=== PATIENT | female | born 1970 | race Caucasian/White ===

== ENCOUNTER 2016-10-07 12:28 | Emergency (ER) | payer OTHER ==
[2016-10-07 13:05] LABS: #Basophils 0.2 thou/uL (0.0-0.2); #Eosinphils 0.3 thou/uL (0.0-0.7); #Monocytes 1.1 thou/uL (0.11-0.59); #Neutrophils 6.5 thou/uL (1.40-6.50); %Basophils 2.1 % (0.0-1.0); %Eosinophils 2.7 % (0.0-10.0); %Lymphocytes 27.3 % (21.0-51.0); %Monocytes 9.7 % (0.0-10.0); Mean Platelet Volume 8.2 fL (7.4-10.4); Red Blood Cell (RBC) Count 4.98 mill/uL (4.20-5.40); White Blood Cell (WBC) Count 11.1 thou/uL (4.8-10.8)
[2016-10-07 13:18] LABS: ALT (SGPT) 32 U/L (0-55); AST (SGOT) 19 U/L (5-34); Alkaline Phosphatase 108 U/L (40-150); Anion Gap 15 mmol/L (10-20); BUN (Urea Nitrogen) 20 mg/dL (7.0-18.7); Bilirubin, Total 0.3 mg/dL (0.2-1.2); CK (CPK) 20 U/L (29-168); Calc. Creatinine Clearance 0 mL/min (70-130); Calcium 8.8 mg/dL (7.8-10.44); Carbon Dioxide 26 mmol/L (22-29); Chloride 102 mmol/L (98-107); Estimated GFR-MDRD 76; Globulin 2.9 g/dL (2.4-3.5); Protein, Total 6.8 g/dL (6.0-8.3)
[2016-10-07 13:21] LABS: Troponin I Less than 0.010 ng/mL (< 0.028)
[2016-10-07] MEDS ORDERED: Ketorolac Tromethamine 60 MG/2 ML VIAL ONE (13:32)
--- NOTE | 2016-10-07 13:36 | ERRECORD ---
[facility] EMERGENCY RECORD HPI CHEST PAIN CHIEF COMPLAINT: Patient presents for evaluation of chest pain, ongoing, Patient presents for evaluation of Pt with CP starting last pm. COnstant but worsening. Hurts along left lower sternal border. Worse with deep breaths. No other symptoms. No trauma. (13:02 JLOY) HISTORIAN: History provided by patient. (13:02 JLOY) LOCATION: Symptoms are localized, most severe in the left lower chest. (13:02 JLOY) QUALITY: Pain is dull in nature. (13:02 JLOY) TIME COURSE: Gradual onset of symptoms, Symptoms are worsening, are constant. (13:02 JLOY) ASSOCIATED WITH: No associated chills, No associated cough, No associated diaphoresis, No associated fever, No associated nausea, No associated palpitations, No associated shortness of breath, No associated trauma, No associated upper respiratory infection, No associated vomiting. (13:02 JLOY) EXACERBATED BY: Patient's condition exacerbated by deep breaths. (13:02 JLOY) RELIEVED BY: Patient's condition relieved by nothing. (13:02 JLOY) RISK FACTORS: No coronary artery disease risk factors. (13:04 JLOY) ROS (13:04 JLOY) CONSTITUTIONAL: Historian denies chills, denies fever. ENT: Historian denies rhinorrhea, denies sore throat. CARDIOVASCULAR: Historian reports chest pain, denies diaphoresis, denies palpitations. RESPIRATORY: Historian denies cough, denies shortness of breath. GI: Historian denies abdominal pain, denies diarrhea, denies nausea, denies vomiting. GENITOURINARY FEMALE: Historian denies dysuria, denies frequency, denies hematuria. MUSCULOSKELETAL: Historian denies back pain. NEUROLOGIC: Historian denies dizziness, denies headache. PAST MEDICAL HISTORY MEDICAL HISTORY: Flu vaccine not up to date, No past medical history, Flu vaccine not up to date, Tetanus not up to date, Pneumococcal vaccine not up to date. (12:34 IHAC) FEMALE SURGICAL HISTORY: Surgical history of section, hysterectomy, x1, ear surgery. (12:34 IHAC) PSYCHIATRIC HISTORY: No previous psychiatric history. (12:34 IHAC) SOCIAL HISTORY: Patient denies alcohol use, Patient has no smoking history, Patient denies alcohol use, Patient denies drug use, Patient is a former tobacco user, smoked cigarettes, Patient quit smoking less than 10 years ago. (12:34 IHAC) NOTES: Nursing records reviewed, Agree with nursing records. &a-1R&a+25V*p+0X*[id number]*c152B*c15G*c2P*p-0X&a-25V&a+1RName: Lelia Kilpatrick : F45 MedRec: [id number] AcctNum: [id number] Prepared: WedOct 07, 2016 13:50 by Interface Page 1 of 3 pMD [facility] EMERGENCY RECORD (13:05 JL) KNOWN ALLERGIES No Known Allergies (Unconfirmed) No Known Drug Allergies CURRENT MEDICATIONS No recorded medications VITAL SIGNS VITAL SIGNS: Pain: 10, Time: 10/07/2016 12:29. (12:29 IHAC) BP: 138/88, Pulse: 94, Resp: 20, Pain: 10 (Constant), O2 sat: 98 on Room Air, Time: 10/07/2016 12:30. (12:30 IHAC) Temp: 97.9 (Oral), Time: 10/07/2016 12:36. (12:36 IHAC) BP: 132/78, Pulse: 82, Resp: 18, Pain: 10, Time: 10/07/2016 13:00. (13:00 BDON) PHYSICAL EXAM (13:04 JL) CONSTITUTIONAL: Vital Signs Reviewed, Patient appears non toxic, Patient alert and oriented to person, place and time. EYES: Eye exam included findings of eyelids normal to inspection, Pupils equally round and reactive to light, Conjunctiva normal. ENT: Pharynx exam normal, Uvula exam normal, Tonsil exam normal, Mouth exam normal, mucous membranes moist. NECK: Neck exam included findings of normal range of motion, Trachea midline. RESPIRATORY CHEST: Respiratory exam included findings of no respiratory distress, Breath sounds clear, No wheezing, No rales, No rhonchi, Chest exam included findings of chest movement symmetrical, Tenderness, moderate, to the left anterior chest, Palpation of chest reproduces symptoms, TTP along left sternal border. CARDIOVASCULAR: Heart rate regular rate and rhythm, Heart sounds normal. ABDOMEN FEMALE: Abdominal exam included findings of abdomen nontender, Bowel sounds normal. BACK: Back exam included findings of normal inspection, range of motion normal. UPPER EXTREMITY: Upper extremity exam included findings of inspection normal, Radial pulse normal, no cyanosis, no clubbing, no edema. LOWER EXTREMITY: Lower extremity exam included findings of inspection normal, no edema, no calf tenderness. NEURO: [place] coma scale 15, Neuro exam findings include patient oriented to person, place and time, Speech normal. SKIN: Skin exam included findings of skin warm, dry, and normal in color, no rash. PSYCHIATRIC: Normal affect. MEDICATION ADMINISTRATION SUMMARY &a-1R&a+25V*p+0X*e6096Z*c152B*c15G*c2P*p-0X&a-25V&a+1RName: Lelia Kilpatrick : F45 MedRec: [id number] AcctNum: [id number] Prepared: WedOct 07, 2016 13:50 by Interface Page 2 of 3 pMD [facility] EMERGENCY RECORD Drug Name: ketorolac intramuscular, Dose Ordered: 60 mg, Route: Intramuscular, Status: Given, Time: 13:38 10/07/2016, Detailed record available in Medication Service section. PROBLEM LIST No recorded problems DIAGNOSIS (13:27 LAZARO) FINAL: PRIMARY: Chest Pain, unspecified. PRESCRIPTION (13:26 JLOY) ibuprofen: TABLET : 800 mg : ORAL : Quantity: 1 Unit: tab(s) Route: ORAL Schedule: every 8 hours PRN Dispense: 30 May substitute. Refills: No Refills . NOTES: No Refills. DISPOSITION PATIENT: Disposition Type: Discharge, Disposition: *Discharge Home. (13:27 JLOY) Patient left the department. (13:44 BDON) Witt: BRADEN=MARIA DOLORES Crane, Toya LAZCANO=Ester Abarca=MD Mike, Fletcher &a-1R&a+25V*p+0X*[id number]*c152B*c15G*c2P*p-0X&a-25V&a+1RName: Lelia Kilpatrick : F45 MedRec: [id number] AcctNum: [id number] Prepared: WedOct 07, 2016 13:50 by Interface Page 3 of 3 pMD MTDD
--- NOTE | 2016-10-07 13:40 | PICIS ---
[facility] EMERGENCY RECORD TRIAGE (WedOct 07, 2016 12:30 IHAC) PATIENT: NAME: Lelia Kilpatrick, AGE: 45, GENDER: female, : Sun 1970, TIME OF GREET: WedOct 07, 2016 12:28, PREFERRED LANGUAGE: [place]serratian, ETHNICITY: Not or , ECODE BILLING MAP: [facility], SSN: [id number], Zip Code: [address], KG WEIGHT: 70.31, PHONE: , , , PERSON ID: [id number], PCP: MD Bernstein Katherine. (WedOct 07, 2016 12:30 IHAC) COMPLAINT: HIGH RISK COMPLAINT: CHEST PAIN. (WedOct 07, 2016 12:30 IHAC) ADMISSION: URGENCY: 3 Urgent, ADMISSION SOURCE: Home, TRANSPORT: CAR, BED: TRIAGE. (WedOct 07, 2016 12:30 IHAC) ASSESSMENT: Symptoms began yesterday. (12:34 IHAC) PAIN: Location CHEST TO LEFT AREA, Pain is intermittent, Aggravating factors:. (12:34 IHAC) SIRS SCORING: Heart Rate 55-109 (0), Temp range 96.8-101.1 (0), respiratory rate 12-24 (0). (12:34 IHAC) LMP: Last menstrual period: 2012. (12:34 IHAC) PROVIDERS: TRIAGE NURSE: Ester Abarca. (WedOct 07, 2016 12:30 IHAC) VITAL SIGNS: Pain 10, Time 10/07/2016 12:29. (12:29 IHAC) BP 138/88, Pulse 94, Resp 20, Pain 10, (Constant), O2 Sat 98, on Room Air, Time 10/07/2016 12:30. (12:30 IHAC) PREVIOUS VISIT ALLERGIES: No Known Drug Allergies. (WedOct 07, 2016 12:30 IHAC) No Known Drug Allergies. (12:34 IHAC) KNOWN ALLERGIES No Known Allergies (Unconfirmed) No Known Drug Allergies CURRENT MEDICATIONS No recorded medications VITAL SIGNS VITAL SIGNS: Pain: 10, Time: 10/07/2016 12:29. (12:29 IHAC) BP: 138/88, Pulse: 94, Resp: 20, Pain: 10 (Constant), O2 sat: 98 on Room Air, Time: 10/07/2016 12:30. (12:30 IHAC) Temp: 97.9 (Oral), Time: 10/07/2016 12:36. (12:36 IHAC) BP: 132/78, Pulse: 82, Resp: 18, Pain: 10, Time: 10/07/2016 13:00. (13:00 BDON) NURSING ASSESSMENT: CARDIOVASCULAR (12:45 BDON) CONSTITUTIONAL: Patient arrives, via hospital wheelchair, History obtained from patient, Patient appears, in distress due to pain, Patient cooperative, Patient alert, Oriented to person, place and time, Skin warm, Skin dry, Skin normal in color. PAIN: midsternal, to the left chest. CARDIOVASCULAR: Cardiovascular assessment findings include heart rate, tachycardic, Heart rhythm normal sinus, Notes: hold pressure on sternum and left chest, stating it feels &a-1R&a+25V*p+0X*r2095S*c152B*c15G*c2P*p-0X&a-25V&a+1RName: Lelia Kilpatrick : F45 MedRec: [id number] AcctNum: [id number] Prepared: WedOct 07, 2016 13:56 by Interface Page 1 of 6 pMD [facility] EMERGENCY RECORD better. SAFETY: Cart/Stretcher in lowest position, Family at bedside, Hospital ID band on, Patient in view of the nursing station. NURSING ASSESSMENT: RESPIRATORY /CHEST (13:08 IHAC) CONSTITUTIONAL: Complex assessment performed, Patient arrives ambulatory, Gait steady, History obtained from patient, Patient appears, anxious, Patient cooperative, Patient alert, Oriented to person, place and time, Skin warm, Skin dry, Skin normal in color, Mucous membranes pink, Mucous membranes moist, Patient is well-groomed, Patient complains of pain to chest radiating to left side. PAIN: aching pain, to the left chest, Onset of pain yesterday, on a scale 0-10 patient rates pain as 10, pain reported at a 10 at rest, Pain exacerbated by nothing. NURSING PROCEDURE: SNACK BAR ATTENDANT (12:41 BDON) PATIENT IDENTIFIER: Patient actively involved in identification process. SNACK BAR ATTENDANT: Cardiac monitoring indicated for complaint of chest pain, Patient placed on media monitor, Patient placed on non-invasive blood pressure monitor, Patient placed on continuous pulse oximetry. NURSING PROCEDURE: DISCHARGE NOTE (13:40 BDON) DISCHARGE: Patient discharged to home, Summary of Care printed/ provided, Patient requested and was provided an electronic copy of Discharge Instructions, Transition record given to patient, Discharge instructions given to patient, Simple or moderate discharge teaching performed, Prescriptions given and instructions on side effects given, Medication reconciliation form given, Above person(s) verbalized understanding of discharge instructions and follow-up care, Patient treated and evaluated by physician. NURSING PROCEDURE: EKG CHART (12:36 BDON) PATIENT IDENTIFIER: Patient actively involved in identification process. EKG: EKG indicated for complaint of chest pain, 12 lead EKG performed on the left chest. NURSING PROCEDURE: NURSE NOTES (13:24 BDON) NURSES NOTES: Patient assisted to bathroom with steady gait. ORDER DETAILS Order Name: SNACK BAR ATTENDANT ED, Status: Done, Time: 12:40 10/07/2016, User: BRADEN, - Ordered for: MD Mckeon Joshua, - Entered by: MARIA DOLORES Crane Bettye - WedOct 07, 2016 12:40, - Quantity: 1, &a-1R&a+25V*p+0X*q1406R*c152B*c15G*c2P*p-0X&a-25V&a+1RName: Lelia Kilpatrick : F45 MedRec: [id number] AcctNum: [id number] Prepared: WedOct 07, 2016 13:56 by Interface Page 2 of 6 D [facility] EMERGENCY RECORD Order Name: Cardiac Profile w/CKMB & Troponin - I, Status: Active, Time: 12:45 10/07/2016, User: LAZARO, - Ordered for: MD Mckeon Joshua, - Entered by: MD Mckeon Joshua - WedOct 07, 2016 12:45, - Quantity: 1, Order Name: CBC with Differential, Status: Active, Time: 12:45 10/07/2016, User: LAZARO, - Ordered for: MD Mckeon Joshua, - Entered by: MD Mckeon Joshua - WedOct 07, 2016 12:45, - Quantity: 1, Order Name: CK (CPK), Status: Active, Time: 12:45 10/07/2016, User: LAZARO, - Ordered for: MD Mckeon Joshua, - Entered by: MD Mckeon Joshua - WedOct 07, 2016 12:45, - Quantity: 1, Order Name: Comprehensive Metabolic Panel, Status: Active, Time: 12:45 10/07/2016, User: LAZARO, - Ordered for: MD Mckeon Joshua, - Entered by: MD Mckeon Joshua - WedOct 07, 2016 12:45, - Quantity: 1, Order Name: EKG 12 Lead in Emergency Room, Status: Active, Time: 12:39 10/07/2016, User: BRADEN, - Ordered for: MD Mckeon Joshua, - Entered by: MARIA DOLORES Crane Bettye - WedOct 07, 2016 12:39, - Quantity: 1. MEDICATION ADMINISTRATION SUMMARY Drug Name: ketorolac intramuscular, Dose Ordered: 60 mg, Route: Intramuscular, Status: Given, Time: 13:38 10/07/2016, Detailed record available in Medication Service section. MEDICATION SERVICE (13:38 LAZARO) ketorolac intramuscular: Order: ketorolac intramuscular (ketorolac tromethamine) - Dose: 60 mg : Intramuscular Ordered by: Fletcher Mckeon MD Entered by: Fletcher Mckeon MD WedOct 07, 2016 13:26 Documented as given by: Toya Crane RN WedOct 07, 2016 13:38 Patient, Medication, Dose, Route and Time verified prior to administration. IM medication, Amount given: 60 mg, Medication administered to right thigh, Correct patient, time, route, dose and medication confirmed prior to administration, Patient advised of actions and side-effects prior to administration, Allergies confirmed and medications reviewed prior to administration. HPI CHEST PAIN CHIEF COMPLAINT: Patient presents for evaluation of chest pain, ongoing, Patient presents for evaluation of Pt with CP starting last pm. COnstant but worsening. Hurts along left lower sternal border. Worse with deep breaths. No other &a-1R&a+25V*p+0X*z9926S*c152B*c15G*c2P*p-0X&a-25V&a+1RName: Lelia Kilpatrick : F45 MedRec: [id number] AcctNum: [id number] Prepared: WedOct 07, 2016 13:56 by Interface Page 3 of 6 pMD [facility] EMERGENCY RECORD symptoms. No trauma. (13:02 JLOY) HISTORIAN: History provided by patient. (13:02 JLOY) LOCATION: Symptoms are localized, most severe in the left lower chest. (13:02 JLOY) QUALITY: Pain is dull in nature. (13:02 JLOY) TIME COURSE: Gradual onset of symptoms, Symptoms are worsening, are constant. (13:02 JLOY) ASSOCIATED WITH: No associated chills, No associated cough, No associated diaphoresis, No associated fever, No associated nausea, No associated palpitations, No associated shortness of breath, No associated trauma, No associated upper respiratory infection, No associated vomiting. (13:02 JLOY) EXACERBATED BY: Patient's condition exacerbated by deep breaths. (13:02 JLOY) RELIEVED BY: Patient's condition relieved by nothing. (13:02 JLOY) RISK FACTORS: No coronary artery disease risk factors. (13:04 JLOY) ROS (13:04 JLOY) CONSTITUTIONAL: Historian denies chills, denies fever. ENT: Historian denies rhinorrhea, denies sore throat. CARDIOVASCULAR: Historian reports chest pain, denies diaphoresis, denies palpitations. RESPIRATORY: Historian denies cough, denies shortness of breath. GI: Historian denies abdominal pain, denies diarrhea, denies nausea, denies vomiting. GENITOURINARY FEMALE: Historian denies dysuria, denies frequency, denies hematuria. MUSCULOSKELETAL: Historian denies back pain. NEUROLOGIC: Historian denies dizziness, denies headache. PAST MEDICAL HISTORY MEDICAL HISTORY: Flu vaccine not up to date, No past medical history, Flu vaccine not up to date, Tetanus not up to date, Pneumococcal vaccine not up to date. (12:34 IHAC) FEMALE SURGICAL HISTORY: Surgical history of section, hysterectomy, x1, ear surgery. (12:34 IHAC) PSYCHIATRIC HISTORY: No previous psychiatric history. (12:34 IHAC) SOCIAL HISTORY: Patient denies alcohol use, Patient has no smoking history, Patient denies alcohol use, Patient denies drug use, Patient is a former tobacco user, smoked cigarettes, Patient quit smoking less than 10 years ago. (12:34 IHAC) NOTES: Nursing records reviewed, Agree with nursing records. (13:05 [facility]) PHYSICAL EXAM (13:04 [facility]) CONSTITUTIONAL: Vital Signs Reviewed, Patient appears non toxic, Patient alert and oriented to person, place and time. &a-1R&a+25V*p+0X*i0398T*c152B*c15G*c2P*p-0X&a-25V&a+1RName: Lelia Kilpatrick : F45 MedRec: [id number] AcctNum: [id number] Prepared: WedOct 07, 2016 13:56 by Interface Page 4 of 6 pMD [facility] EMERGENCY RECORD EYES: Eye exam included findings of eyelids normal to inspection, Pupils equally round and reactive to light, Conjunctiva normal. ENT: Pharynx exam normal, Uvula exam normal, Tonsil exam normal, Mouth exam normal, mucous membranes moist. NECK: Neck exam included findings of normal range of motion, Trachea midline. RESPIRATORY CHEST: Respiratory exam included findings of no respiratory distress, Breath sounds clear, No wheezing, No rales, No rhonchi, Chest exam included findings of chest movement symmetrical, Tenderness, moderate, to the left anterior chest, Palpation of chest reproduces symptoms, TTP along left sternal border. CARDIOVASCULAR: Heart rate regular rate and rhythm, Heart sounds normal. ABDOMEN FEMALE: Abdominal exam included findings of abdomen nontender, Bowel sounds normal. BACK: Back exam included findings of normal inspection, range of motion normal. UPPER EXTREMITY: Upper extremity exam included findings of inspection normal, Radial pulse normal, no cyanosis, no clubbing, no edema. LOWER EXTREMITY: Lower extremity exam included findings of inspection normal, no edema, no calf tenderness. NEURO: [place] coma scale 15, Neuro exam findings include patient oriented to person, place and time, Speech normal. SKIN: Skin exam included findings of skin warm, dry, and normal in color, no rash. PSYCHIATRIC: Normal affect. EVENTS TRANSFER: Triage to Emergency Triage. (WedOct 07, 2016 12:30 IHAC) Emergency Triage to Emergency Room -03. (12:38 BDON) Removed from Emergency Emergency Room -03. (13:44 BDON) PROBLEM LIST No recorded problems DIAGNOSIS (13:27 JLOY) FINAL: PRIMARY: Chest Pain, unspecified. DISPOSITION PATIENT: Disposition Type: Discharge, Disposition: *Discharge Home. (13:27 JLOY) Patient left the department. (13:44 BDON) INSTRUCTION (13:27 JLOY) DISCHARGE: CHEST PAIN COSTOCHONDRITIS. FOLLOWUP: MD Day, Sherwin Espinoza, [address], [address], [facility] [address], , Follow up with Primary Care Physician in 7-10 days. &a-1R&a+25V*p+0X*f7870B*c152B*c15G*c2P*p-0X&a-25V&a+1RName: Lelia Kilpatrick : 5 MedRec: [id number] AcctNum: [id number] Prepared: WedOct 07, 2016 13:56 by Interface Page 5 of 6 pMD [facility] EMERGENCY RECORD PRESCRIPTION (13:26 JLOY) ibuprofen: TABLET : 800 mg : ORAL : Quantity: 1 Unit: tab(s) Route: ORAL Schedule: every 8 hours PRN Dispense: 30 May substitute. Refills: No Refills . NOTES: No Refills. IMAGING *DISCHARGE INSTRUCTIONS RECEIPT: Image captured from scanner. (13:42 BDON) *EKG: Image captured from scanner. (13:42 BDON) SUPPLY: Image captured from scanner. (13:43 BDON) ADMIN DIGITAL SIGNATURE: MD Mckeon Joshua. (13:27 JLOY) MARIA DOLORES Crane Bettye. (13:44 BDON) Witt: BDKHARI=MARIA DOLORES Crane Bettye IHAC=Ester Abarca JLOY=MD Mckeon Joshua &a-1R&a+25V*p+0X*j2109X*c152B*c15G*c2P*p-0X&a-25V&a+1RName: Lelia Kilpatrick : 5 MedRec: [id number] AcctNum: [id number] Prepared: WedOct 07, 2016 13:56 by Interface Page 6 of 6 pMD MTDD
== END 2016-10-07 13:40 | disposition home or self-care (01) ==
LOC: NAV ERS 12:28
DX: R07.9 Chest pain, unspecified (principal); Z90.710 Acquired absence of both cervix and uterus; Z87.891 Personal history of nicotine dependence
CPT/HCPCS: 36415; 80053; 82550; 82553; 84484; 85025; 93005; 96372; J1885

== ENCOUNTER 2017-07-03 04:33 | Emergency (ER) | payer OTHER ==
[2017-07-03] MEDS ORDERED: Sodium Chloride 0.9% 1,000 ML ONE (05:00)
[2017-07-03] MEDS ORDERED: Ondansetron HCl/PF 4 MG/2 ML Vial ONE ×2 (05:00→06:35)
[2017-07-03 05:01] LABS: #Basophils 0.1 thou/uL (0.0-0.2); #Eosinphils 0.1 thou/uL (0.0-0.7); #Monocytes 0.6 thou/uL (0.11-0.59); #Neutrophils 7.4 thou/uL (1.40-6.50); %Basophils 1.1 % (0.0-1.0); %Eosinophils 0.9 % (0.0-10.0); %Lymphocytes 19.6 % (21.0-51.0); %Monocytes 6.2 % (0.0-10.0); %Neutrophils 72.2 % (42.0-75.0); Hemoglobin 14.6 g/dL (12.0-16.0); Mean Corpuscular HGB CONC 32.3 g/dL (32.0-36.0); Mean Corpuscular Hemoglobin 28.5 pg (27.0-31.0); Mean Corpuscular Volume 88.2 fl (81.0-99.0); Mean Platelet Volume 8.6 fL (7.4-10.4); Platelet Count 267 thou/uL (130-400); RBC Distribution Width 12.8 % (11.5-14.5); Red Blood Cell (RBC) Count 5.11 mill/uL (4.20-5.40); White Blood Cell (WBC) Count 10.2 thou/uL (4.8-10.8)
[2017-07-03 05:14] LABS: BHCG - Serum Negative (NEGATIVE); Pregs Control Bar Appear? YES (CONTROL BAR)
[2017-07-03 05:20] LABS: ALT (SGPT) 25 U/L (8-55); AST (SGOT) 18 U/L (5-34); Albumin 4.3 g/dL (3.5-5.0); Alkaline Phosphatase 93 U/L (40-150); Anion Gap 14 mmol/L (10-20); BUN (Urea Nitrogen) 15 mg/dL (7.0-18.7); Bilirubin, Total 0.2 mg/dL (0.2-1.2); Calc. Creatinine Clearance 0 mL/min (70-130); Calcium 9.5 mg/dL (7.8-10.44); Carbon Dioxide 24 mmol/L (22-29); Chloride 105 mmol/L (98-107); Estimated GFR-MDRD 82; Globulin 3.4 g/dL (2.4-3.5); Glucose 125 mg/dL (70-105); Lipase 14 U/L (8-78); Protein, Total 7.7 g/dL (6.0-8.3); Sodium 139 mmol/L (136-145)
[2017-07-03] MEDS ORDERED: Pantoprazole 40 MG VIAL ONE (06:34)
[2017-07-03] MEDS ORDERED: metroNIDAZOLE 500 MG/100 ML BAG ONE ×2 (06:35→06:36)
[2017-07-03 06:48] LABS: Bacteria/HPF None Seen HPF (None Seen); Bilirubin Negative (Negative); Blood, Urine Moderate (Negative); Clarity Clear (Clear); Glucose, Urine (Dipstick) Negative (Negative); Leukocyte Negative (Negative); Nitrite Negative (Negative); Protein, Urine (Dipstick) Negative (Neg-Trace); Urobilinogen 0.2 mg/dL (0.2-1.0); WBC/HPF None Seen HPF (0-3)
[2017-07-03] MEDS ORDERED: Iopamidol 370 76% 100 ML VIAL ONE (09:00)
--- NOTE | 2017-07-03 10:18 | CT ---
PRELIMINARY REPORT/[facility]/EMERGENCY AFTER HOURS PROCEDURE: EXAM: CT Abdomen and Pelvis With Intravenous Contrast CLINICAL HISTORY: 46 years old, female; Signs and symptoms; Vomiting; Prior surgery; Surgery date: 6+ months; Surgery type: Hysterectomy; Additional info: Diffuse abd pain since 2029 TECHNIQUE: Axial computed tomography images of the abdomen and pelvis with intravenous contrast. All CT scans a t this facility use one or more dose reduction techniques, viz.: automated exposure control; ma/kV a djustment per patient size (including targeted exams where dose is matched to indication; i.e. head) ; or iterative reconstruction technique. Coronal and sagittal reformatted images were created and reviewed. CONTRAST: 96 mL of isovue 370 administered intravenously. COMPARISON: No relevant prior studies available. FINDINGS: Lower thorax: Minimal bibasilar dependent atelectasis. ABDOMEN: Liver: Unremarkable. Gallbladder and bile ducts: Unremarkable Pancreas: Unremarkable. Spleen: Unremarkable. Adrenals: Unremarkable. Kidneys and ureters: Unremarkable. Stomach and bowel: Descending colon and sigmoid are decompressed with bowel wall thickening. Stool throughout the proximal and transverse colons. Postsurgical changes in the cecum. Diverticulosis of the colon without inflammatory changes. Appendix: No findings to suggest acute appendicitis. PELVIS: Bladder: Unremarkable. Reproductive: Status post hysterectomy. ABDOMEN and PELVIS: Intraperitoneal space: No free air. No significant fluid collection. Bones/joints: No acute fracture. No dislocation. Soft tissues: Fat containing periumbilical hernia. Vasculature: Unremarkable. Lymph nodes: Scattered non specific subcentimeter mesenteric and para aortic lymph nodes. IMPRESSION: Bowel wall thickening of the descending and sigmoid colon likely due to underdistention, however und erlying colitis not completely excluded. Correlate clinically. Thank you for allowing us to participate in the care of your patient. Dictated and Authenticated by: Jose Alberto Robin MD 07/03/2017 6:19 AM Central Time ([place] \T\ [place]) FINAL REPORT EMERGENCY AFTER HOURS STUDY CT ABDOMEN WITH CONTRAST CT PELVIS WITH CONTRAST: DATE: 07/03/17 TIME: 0518 HOURS COMPARISON: 07/18/15. HISTORY: 46-year-old female with acute onset of diffuse abdominal pain with nausea and emesis. TECHNIQUE: IV injection of iodinated contrast media: 96 mL of Isovue-370. Oral contrast media: Not administered. FINDINGS: The previously demonstrated large cystic masses in the pelvis extending far superiorly into the mid- upper abdominal cavity, are no longer present. The urinary bladder is mostly decompressed. Questiona ble mild mural thickening of the entire descending colon and sigmoid colon. Multiple diverticula wit hout surrounding fat stranding throughout the descending colon and proximal sigmoid colon. Appendix not visualized. Suture line noted at cecum. There is also stool in the distal ileum (fecalization), which often indicates small bowel obstruction. However, there is no small bowel dilation and therefo re there is no obstruction in this case. The liver, kidneys, abdominal aorta, adrenals, pancreas, an d spleen are normal. No free fluid or free air within the abdominal cavity or pelvic cavity. Appendi x not visualized. Lung bases are grossly clear. IMPRESSION: 1. Questionable mild colitis involving entire descending colon and proximal sigmoid colon. 2. Descending and sigmoid colonic diverticulosis without diverticulitis. 3. 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 4. Probable status post appendectomy. 5. Fecalization of distal ileum, but this apparently is not due to a small bowel obstruction. 6. No major disagreement with the preliminary report by Irene. YADIRA POS: CALISTA
== END 2017-07-03 07:05 | disposition short-term general hospital (02) ==
LOC: NAV ERS 04:33
DX: R10.11 Right upper quadrant pain (principal); J45.909 Unspecified asthma, uncomplicated; Z87.891 Personal history of nicotine dependence; Z79.899 Other long term (current) drug therapy
CPT/HCPCS: 36415; 74177; 80053; 81003; 81015; 83690; 84703; 85025; 96361; 96374; 96375; 96376; C9113; J2270; J2405; J7050

== ENCOUNTER 2018-08-22 10:51 | Emergency (ER) | payer OTHER, SELFPAY ==
[2018-08-22] MEDS ORDERED: Ibuprofen 200 MG TAB ONE (11:25)
[2018-08-22] MEDS ORDERED: traMADol HCl 50 MG TAB ONE (11:25)
--- NOTE | 2018-08-22 14:19 | RAD ---
LEFT SHOULDER THREE VIEWS: HISTORY: Left shoulder pain. FINDINGS: There are mild degenerative changes in the acromioclavicular joint. No fracture, dislocation, or bon y destruction is identified. POS: DARSHAN
== END 2018-08-22 12:06 | disposition home or self-care (01) ==
LOC: NAV ERS 10:51
DX: M25.512 Pain in left shoulder (principal); J45.909 Unspecified asthma, uncomplicated; Z87.891 Personal history of nicotine dependence

== ENCOUNTER 2024-10-18 00:12 | Emergency (ER) | payer BC, OTHER ==
[2024-10-18 00:30] LABS: Bilirubin Negative (Negative); Blood, Urine Large (Negative); Clarity Clear (Clear); Glucose, Urine (Dipstick) Negative (Negative); Ketone, Urine Negative (Negative); Leukocyte Negative (Negative); Nitrite Negative (Negative); Protein, Urine (Dipstick) 30 mg/dL (Neg-Trace); Specific Gravity, Urine 1.025 (1.005-1.030); Urobilinogen 0.2 mg/dL (Less than 2)
[2024-10-18 00:33] LABS: Bacteria/HPF Rare-Few HPF (None Seen); CAUTI Indications for Culture Pelvic or flank pain; RBC/HPF Greater than 50 HPF (0-3); WBC/HPF None Seen HPF (0-3)
[2024-10-18 00:34] LABS: Urine Culture Reflex No No
[2024-10-18 00:44] LABS: #Basophils 0.1 thou/uL (0.0-0.2); #Eosinophils 0.4 thou/uL (0.0-0.7); #Lymphocytes 3.1 thou/uL (1.20-3.40); #Monocytes 0.8 thou/uL (0.11-0.59); #Neutrophils 4.2 thou/uL (1.40-6.50); %Basophils 1.1 % (0.0-1.0); %Lymphocytes 36.4 % (21.0-51.0); %Monocytes 8.7 % (0.0-10.0); %Neutrophils 48.8 % (42.0-75.0); Hematocrit 44.2 % (36.0-47.0); Hemoglobin 13.9 g/dL (12.0-16.0); Mean Corpuscular HGB CONC 31.3 g/dL (32.0-36.0); Mean Corpuscular Hemoglobin 27.4 pg (27.0-31.0); Mean Corpuscular Volume 87.4 fl (78.0-98.0); Mean Platelet Volume 9.3 fL (7.4-10.4); Platelet Count 295 10x3/uL (130-400); RBC Distribution Width 11.9 % (11.5-14.5); Red Blood Cell (RBC) Count 5.06 mill/uL (4.20-5.40); White Blood Cell (WBC) Count 8.6 10x3/uL (4.8-10.8)
[2024-10-18 00:56] LABS: ALT (SGPT) 24 U/L (8-55); AST (SGOT) 18 U/L (5-34); Albumin 3.9 g/dL (3.5-5.0); Alkaline Phosphatase 73 U/L (40-110); Anion Gap 14 mmol/L (10-20); BUN (Urea Nitrogen) 20 mg/dL (9.8-20.1); Bilirubin, Total 0.4 mg/dL (0.2-1.2); Calc. Creatinine Clearance 0 mL/min (70-130); Calcium 9.7 mg/dL (7.8-10.44); Carbon Dioxide 24 mmol/L (22-29); Chloride 108 mmol/L (98-107); Estimated GFR 59; Globulin 3.5 g/dL (2.4-3.5); Glucose 115 mg/dL (70-105); Potassium 3.9 mmol/L (3.5-5.1); Protein, Total 7.4 g/dL (6.0-8.3); Sodium 142 mmol/L (136-145)
[2024-10-18] MEDS ORDERED: Sodium Chloride 0.9% 500 ML ONE (01:04)
[2024-10-18] MEDS ORDERED: Ondansetron PF 4 MG/2 ML Vial ONE (01:04)
[2024-10-18] MEDS ORDERED: Ketorolac Tromethamine 30 MG (1 mL) VIAL ONE (01:04)
[2024-10-18] MEDS ORDERED: Tamsulosin HCl 0.4 MG CAP ONE (02:54)
== END 2024-10-18 03:13 | disposition home or self-care (01) ==
LOC: NAV ERS 00:12
DX: N20.2 Calculus of kidney with calculus of ureter (principal); K76.0 Fatty (change of) liver, not elsewhere classified; Z90.49 Acquired absence of other specified parts of digestive tract
CPT/HCPCS: 74176; 80053; 81001; 85025; 96361; 96374; 96375; J1885; J2405; J7030